=== PATIENT | male | born 1975 | race Caucasian/White ===

== ENCOUNTER 2020-04-10 10:17 | Emergency (ER) | payer OTHER ==
[~2020-04-10] VITALS: Ht 182.9 cm; Wt 97.5 kg
[2020-04-10] MEDS ORDERED: KEFLEX500 MG PO (12:34)
== END 2020-04-10 12:41 | disposition home or self-care (01) ==
LOC: ER 10:17
DX: L03.113 Cellulitis of right upper limb (principal)
CPT/HCPCS: 73090; 99283-25

== ENCOUNTER 2020-12-08 13:30 | Emergency (ER) | payer OTHER ==
[~2020-12-08] VITALS: Ht 180.3 cm; Wt 99.8 kg
[~2020-12-08 13:30] MED LIST: KEFLEX500 MG PO
== END 2020-12-08 15:23 | disposition home or self-care (01) ==
LOC: ER 13:30
DX: M79.632 Pain in left forearm (principal); M25.522 Pain in left elbow; W01.0XXA Fall on same level from slipping, tripping and stumbling without subsequent striking against object, initial encounter
CPT/HCPCS: 73080; 99283-25